=== PATIENT | female | born 2000 | race Caucasian/White ===

== ENCOUNTER 2021-03-06 19:53 | Emergency (ER) | payer OTHER ==
[~2021-03-06 19:53] MED LIST: BENTYL 20MG TAB20 MG PO; ZOFRAN ODT 4 MG4 MG PO; ZOFRAN ODT 4 MG4 MG SL
== END 2021-03-07 00:30 | disposition home or self-care (01) ==
LOC: ER1 19:53
DX: S30.1XXA Contusion of abdominal wall, initial encounter (principal); W22.8XXA Striking against or struck by other objects, initial encounter; Y92.009 Unspecified place in unspecified non-institutional (private) residence as the place of occurrence of the external cause
CPT/HCPCS: 81001; 84703; 99284; Q9967

== ENCOUNTER 2021-04-14 22:11 | Emergency (ER) | payer OTHER ==
[2021-04-14 23:29] LABS: HEMOGLOBIN 10.5 gm/dl (12.3-15.3); RED BLOOD COUNT 4.06 M/UL (4.00-5.10); WHITE BLOOD COUNT 12.4 K/UL (4.5-11.0)
[2021-04-14 23:49] LABS: BUN/CREATININE RATIO 16 (0-10)
[2021-04-15] MEDS ORDERED: ZOFRAN ODT 4 MG4 MG GT (01:09)
== END 2021-04-15 01:36 | disposition home or self-care (01) ==
LOC: ER1 22:11
PROVIDERS: Family Medicine
DX: O21.9 Vomiting of pregnancy, unspecified (principal); O99.281 Endocrine, nutritional and metabolic diseases complicating pregnancy, first trimester; E86.0 Dehydration; O99.891 Other specified diseases and conditions complicating pregnancy; R51.9 Headache, unspecified; Z90.49 Acquired absence of other specified parts of digestive tract; Z3A.09 9 weeks gestation of pregnancy
CPT/HCPCS: 80053; 81001; 83540; 83550; 83690; 85025; 85379; 96374; 99284; J2765; J7030

== ENCOUNTER 2021-11-16 05:36 | Inpatient (IN) | payer OTHER ==
[~2021-11-16] VITALS: Ht 175.3 cm; Wt 140.6 kg
[~2021-11-16 05:36] MED LIST changes: +ZOFRAN ODT 4 MG4 MG GT
[2021-11-16 06:36] LABS: HEMOGLOBIN 11.2 gm/dl (12.3-15.3); RED BLOOD COUNT 3.71 M/UL (4.00-5.10); WHITE BLOOD COUNT 12.5 K/UL (4.5-11.0)
[2021-11-16] MEDS ORDERED: COMPLETENATE T1 EACH PO (06:46)
[2021-11-16] MEDS ORDERED: IRON325 M1 PO (06:46)
[2021-11-16] MEDS ORDERED: COLACE 100MG C100 MG PO (07:58)
[2021-11-16] MEDS ORDERED: IBUPROFEN600 MG PO (07:58)
[2021-11-16] MEDS ORDERED: HYDROCODON-ACE1 EAC6 PO (07:58)
[2021-11-17 04:41] LABS: HEMOGLOBIN 9.1 gm/dl (12.3-15.3)
[2021-11-17] MEDS ORDERED: FERROUS SULFAT325 M2 PO (12:01)
[2021-11-17] MEDS ORDERED: LABETALOL HCL100 MG PO (12:01)
== END 2021-11-17 13:14 | disposition home or self-care (01) | DRG 788 ==
LOC: GENOP 05:36 → OB 05:48
PROVIDERS: ADMIT Obstetrics & Gynecology
PROC: 4A1HXCZ Monitoring of Products of Conception, Cardiac Rate, External Approach (ICD-10-PCS; 2021-11-16)
PROC: 10D00Z1 Extraction of Products of Conception, Low, Open Approach (ICD-10-PCS; principal; 2021-11-16 08:14)
DX: O99.214 Obesity complicating childbirth (principal); Z3A.39 39 weeks gestation of pregnancy; Z20.822 Contact with and (suspected) exposure to COVID-19; O10.92 Unspecified pre-existing hypertension complicating childbirth; Z37.0 Single live birth; E66.9 Obesity, unspecified; Z90.49 Acquired absence of other specified parts of digestive tract
CPT/HCPCS: 36415; 81001; 82800; 85014; 85018; 85025; C9113; J0690; J1170; J1200; J1650; J1885; J2274; J2370; J2405; J2550; J2590; J3010; J7120

== ENCOUNTER 2022-07-29 18:36 | Emergency (ER) | payer OTHER ==
[~2022-07-29 18:36] MED LIST changes: +COLACE 100MG C100 MG PO; +COMPLETENATE T1 EACH PO; +FERROUS SULFAT325 M2 PO; +HYDROCODON-ACE1 EAC6 PO; +IBUPROFEN600 MG PO; +IRON325 M1 PO; +LABETALOL HCL100 MG PO
[2022-07-29 19:57] LABS: HEMOGLOBIN 12.3 gm/dl (12.3-15.3); RED BLOOD COUNT 4.47 M/UL (4.00-5.10); WHITE BLOOD COUNT 12.1 K/UL (4.5-11.0)
[2022-07-29 20:17] LABS: BUN/CREATININE RATIO 14 (0-10)
[2022-07-30] MEDS ORDERED: ONDANSETRON ODT4 MG PO (01:05)
[2022-07-31] MEDS ORDERED: PHENERGAN 25 MG25 M1 PO (06:53)
[2022-07-31] MEDS ORDERED: LACTULOSE20 GM/30 M PO (06:54)
== END 2022-07-30 01:14 | disposition home or self-care (01) ==
LOC: ER1 18:36
PROVIDERS: Nurse Practitioner
DX: R10.9 Unspecified abdominal pain (principal); R11.2 Nausea with vomiting, unspecified
CPT/HCPCS: 80053; 81001; 83690; 84703; 85025; 96361; 96374; 96375; 99284; J2270; J2405; Q9967

== ENCOUNTER 2022-07-31 04:13 | Emergency (ER) | payer OTHER ==
[~2022-07-31 04:13] MED LIST changes: +ONDANSETRON ODT4 MG PO
[2022-07-31 05:45] LABS: HEMOGLOBIN 12.4 gm/dl (12.3-15.3); RED BLOOD COUNT 4.61 M/UL (4.00-5.10)
[2022-07-31 05:46] LABS: WHITE BLOOD COUNT 16.3 K/UL (4.5-11.0)
[2022-07-31 06:25] LABS: BUN/CREATININE RATIO 18 (0-10)
[2022-07-31] MEDS ORDERED: PHENERGAN 25 MG25 M1 PO (06:53)
[2022-07-31] MEDS ORDERED: LACTULOSE20 GM/30 M PO (06:54)
== END 2022-07-31 08:55 | disposition home or self-care (01) ==
LOC: ER1 04:13
PROVIDERS: Nurse Practitioner
DX: U07.1 COVID-19 (principal); K76.0 Fatty (change of) liver, not elsewhere classified; I10 Essential (primary) hypertension
CPT/HCPCS: 80053; 81001; 83605; 84703; 85025; 96374; 96375; 99284; J1885; J2550; Q9967; U0002